=== PATIENT | female | born 1985 | race Caucasian/White ===

== ENCOUNTER 2017-04-03 11:30 | Emergency (ER) | payer SELFPAY ==
[2017-04-03 11:56] VITALS: BP 155/87; BMI 51.9
[2017-04-03] MEDS ORDERED: ZOFRAN INJ 4 MG VIAL IM ONE (12:52)
--- NOTE | 2017-04-03 12:58 | DR.NAUSEAF ---
HPI - Primary Care Physician Primary Care Physician: ARACELI RABAGO - Complaints Chief Complaint:: PT C/O HAVING NUMBNESS TO HER FEET TO HER HEAD , AND FEELING LIKE A RIVER IS RUNNING IN HER HEAD". Self Treatment fo Chief Complaint: PT IS IN A WHEELCHAIR .. AT THIS TIME .. - Reviewed Nurses Notes Reviewed: Yes - Source History Provided: Patient - Mode of Arrival Mode of Arrival: Ambulatory - Timing Onset of Chief Complaint: 03/25/17 - Context Onset: Spontaneous Recent: None : No History of: None - Quality Quality: Bilious - Associated Signs and Symptoms Abdominal Pain Quality: Other (NONE) Symptoms: Anorexia PMH - PMH Past Medical History: Yes Past Medical History: Anxiety Past Medical History Comment: PCOS, ANEMIA AND BLOOD TRANFUSION. Past Surgical History: No - Family History History of Family Medical Conditions: No - Social History Does patient currently use any type of tobacco product: No Have you used tobacco products in the last 12 months: No Type of Tobacco Use: None Does any household member use tobacco: No Alcohol Use: None Do you use any recreational Drugs:: No Lives With: Family Lives Where: Home - infectious screening In the last 2 months have you had wt loss of >10#?: NO Have you had fever, night sweats or hemotysis?: No Have you traveled outside the country in the last 6 months?: No Isolation: Standard PE - Vital Signs Vitals: Temperature 98.7 F Pulse Rate 101 Respiratory Rate 18 Blood Pressure 155/87 O2 Sat by Pulse Oximetry 97 ROR - Labs Reviewed Result Diagrams: 04/03/17 13:16 04/03/17 13:16 Laboratory: WBC 18.4 X10^3/uL (3.6-10.0) H 04/03/17 13:16 RBC 5.39 X10^6/uL (3.5-5.4) 04/03/17 13:16 Hgb 13.9 g/dL (12.0-16.0) 04/03/17 13:16 Hct 42.0 % (36.0-47.0) 04/03/17 13:16 MCV 78.0 fL (80.0-100.0) L 04/03/17 13:16 MCH 25.8 pg (27.0-34.0) L 04/03/17 13:16 MCHC 33.1 g/dL (33.0-35.0) 04/03/17 13:16 RDW 16.4 % (11.6-16.5) 04/03/17 13:16 Plt Count 356 X10^3/uL (150.0-450.0) 04/03/17 13:16 Plt Count Comment Adequate (ADEQUATE) 04/03/17 13:16 MPV 7.8 fL (7.4-11.0) 04/03/17 13:16 Neut % 79.7 % (42.0-75.0) H 04/03/17 13:16 Lymph % 15.2 % (21.0-51.0) L 04/03/17 13:16 Hanson % 4.2 % (0.0-13.0) 04/03/17 13:16 Eos % 0.3 % (0.9-2.9) L 04/03/17 13:16 Baso % 0.6 % (0.2-1.0) 04/03/17 13:16 Neut # 14.7 x10^3/uL (2.2-4.8) H 04/03/17 13:16 Lymph # 2.8 X10^3/uL (1.3-2.9) 04/03/17 13:16 Hanson # 0.8 x10^3/uL (0.3-0.8) 04/03/17 13:16 Eos # 0.1 x10^3/uL (0.0-0.2) 04/03/17 13:16 Baso # 0.1 X10^3/uL (0.0-0.1) 04/03/17 13:16 Absolute Nucleated RBC 0.0 /100WBC 04/03/17 13:16 Plt Morphology Comment Normal (NORMAL) 04/03/17 13:16 RBC Morphology Normal (NORMAL) 04/03/17 13:16 Sodium 140 mmol/L (136-145) 04/03/17 13:16 Corrected Sodium TNP 04/03/17 13:16 Potassium 4.1 mmol/L (3.5-5.1) 04/03/17 13:16 Chloride 104 mmol/L (98-107) 04/03/17 13:16 Carbon Dioxide 23.3 mmol/L (21-32) 04/03/17 13:16 BUN 16 mg/dL (7-18) 04/03/17 13:16 Creatinine 0.83 mg/dL (0.55-1.02) 04/03/17 13:16 Est GFR (MDRD) Af Amer > 60 (>60) 04/03/17 13:16 Est GFR (MDRD) Non-Af > 60 (>60) 04/03/17 13:16 Glucose 104 mg/dL (65-99) H 04/03/17 13:16 Calcium 9.3 mg/dL (8.5-10.1) 04/03/17 13:16 Corrected Calcium TNP 04/03/17 13:16 Total Bilirubin 0.20 mg/dL (0.2-1.0) 04/03/17 13:16 AST 13 Units/L (15-37) L 04/03/17 13:16 ALT 21 Units/L (12-78) 04/03/17 13:16 Alkaline Phosphatase 105 Units/L (46-116) 04/03/17 13:16 Total Protein 8.2 g/dL (6.4-8.2) 04/03/17 13:16 Albumin 3.6 g/dL (3.4-5.0) 04/03/17 13:16 Globulin 4.6 g/dL (2.5-4.5) H 04/03/17 13:16 Albumin/Globulin Ratio 0.8 Ratio (1.1-2.1) L 04/03/17 13:16 Specimen Type Clean catch urine 04/03/17 14:30 Urine Color Yellow (YELLOW) 04/03/17 14:30 Urine Appearance Cloudy (CLEAR) 04/03/17 14:30 Urine pH 5.0 (5.0 - 8.0) 04/03/17 14:30 Ur Specific P[place]ling 1.025 (1.000-1.030) 04/03/17 14:30 Urine Protein 2+ (NEGATIVE) 04/03/17 14:30 Urine Glucose (UA) Negative (NEGATIVE) 04/03/17 14:30 Urine Ketones Negative (NEGATIVE) 04/03/17 14:30 Urine Occult Blood 1+ (NEGATIVE) 04/03/17 14:30 Urine Nitrite Negative (NEGATIVE) 04/03/17 14:30 Urine Bilirubin Negative (NEGATIVE) 04/03/17 14:30 Urine Urobilinogen Normal (NORMAL) 04/03/17 14:30 Ur Leukocyte Esterase 1+ (NEGATIVE) 04/03/17 14:30 Urine RBC 0-4 /HPF (NEGATIVE) 04/03/17 14:30 Urine WBC 0-5 /HPF (NEGATIVE) 04/03/17 14:30 Ur Squamous Epith Cells Rare /HPF (NEGATIVE) 04/03/17 14:30 Amorphous Sediment 3+ /HPF (NEGATIVE) 04/03/17 14:30 Urine Bacteria Negative /HPF (NEGATIVE) 04/03/17 14:30 Ur Culture Indicated? No/not indicated 04/03/17 14:30 - Discharge Plan Disposition: HOME, SELF-CARE Condition: Stable Prescriptions: Ondansetron [Zofran ODT 8 mg] 8 mg PO Q8H PRN #12 tab PRN Reason: Nausea/Vomiting - Follow ups/Referrals Follow ups/Referrals: N[facility],None [Primary Care Provider] - 04/04/17 - Instructions Instructions: Leukocytosis, Nausea and Vomiting, Adult, [id number], Musculoskeletal Pain Additional Instructions: RETURN TO ED IF WORSE. CONTINUE MEDS AT HOME.
[2017-04-03] MEDS ORDERED: ZOFRAN INJ 4 MG VIAL ONE (13:07)
[2017-04-03 13:24] LABS: BASOPHILS # (AUTO) 0.1 X10^3/uL (0.0-0.1); BASOPHILS % (AUTO) 0.6 % (0.2-1.0); EOSINOPHILS # (AUTO) 0.1 x10^3/uL (0.0-0.2); EOSINOPHILS % (AUTO) 0.3 % (0.9-2.9); HEMOGLOBIN 13.9 g/dL (12.0-16.0); LYMPHOCYTES # (AUTO) 2.8 X10^3/uL (1.3-2.9); LYMPHOCYTES % (AUTO) 15.2 % (21.0-51.0); MEAN CORPUSCULAR HEMOGLOBIN 25.8 pg (27.0-34.0); MEAN CORPUSCULAR HGB CONC 33.1 g/dL (33.0-35.0); MEAN PLATELET VOLUME 7.8 fL (7.4-11.0); MONOCYTES # (AUTO) 0.8 x10^3/uL (0.3-0.8); MONOCYTES % (AUTO) 4.2 % (0.0-13.0); NEUTROPHILS # (AUTO) 14.7 x10^3/uL (2.2-4.8); NEUTROPHILS % (AUTO) 79.7 % (42.0-75.0); PLATELET COUNT 356 X10^3/uL (150.0-450.0); RED BLOOD COUNT 5.39 X10^6/uL (3.5-5.4); RED CELL DISTRIBUTION WIDTH 16.4 % (11.6-16.5); WHITE BLOOD COUNT 18.4 X10^3/uL (3.6-10.0)
[2017-04-03 13:36] LABS: ALANINE AMINOTRANSFERASE 21 Units/L (12-78); ALBUMIN 3.6 g/dL (3.4-5.0); ALKALINE PHOSPHATASE 105 Units/L (46-116); ASPARTATE AMINO TRANSFERASE 13 Units/L (15-37); BLOOD UREA NITROGEN 16 mg/dL (7-18); CALCIUM 9.3 mg/dL (8.5-10.1); CARBON DIOXIDE 23.3 mmol/L (21-32); CHLORIDE 104 mmol/L (98-107); CREATININE 0.83 mg/dL (0.55-1.02); SODIUM 140 mmol/L (136-145); TOTAL PROTEIN 8.2 g/dL (6.4-8.2); eGFR BLACK RACES > 60 (>60); eGFR NON BLACK RACES > 60 (>60)
[2017-04-03 13:39] LABS: PLATELET MORPHOLOGY COMMENT NORMAL (NORMAL)
--- NOTE | 2017-04-03 13:54 | CT ---
HISTORY: Right-sided weakness Study: CT of the head Comparison: None Technique: Serial axial images were obtained from the skull base to the vertex without infusion of IV contrast. Findings: The ventricles, sulci, and cisterns are grossly unremarkable in appearance. No definite evidence of a cute intracranial hemorrhage is appreciated. No significant midline shift is identified. The visualiz ed paranasal sinuses are unremarkable in appearance. If symptoms or clinical concern persist recommen d continued follow-up further evaluation. IMPRESSION: No CT evidence of acute intracranial abnormality is appreciated. Reported By:
--- NOTE | 2017-04-03 14:56 | RAD ---
Examination: Abdomen with PA chest History: Abdominal pain and vomiting Findings: PA chest demonstrates normal heart size with clear lungs and pleural spaces. In the abdomen , supine and erect views demonstrate normal gas pattern. There is nothing to suggest bowel obstructio n, perforation, ileus or mass formation. No pathologic calcification is identified. Impression: No significant chest or abdominal abnormality. Reported By:
[2017-04-03 15:07] LABS: BILIRUBIN,URINE NEGATIVE (NEGATIVE); BLOOD/HEMOGLOBIN,URINE 1+ (NEGATIVE); GLUCOSE, URINE NEGATIVE (NEGATIVE); KETONES,URINE NEGATIVE (NEGATIVE); LEUKOCYTE ESTERASE ,URINE 1+ (NEGATIVE); NITRITES,URINE NEGATIVE (NEGATIVE); PROTEIN,URINE 2+ (NEGATIVE); UROBILINOGEN,URINE NORMAL (NORMAL)
[2017-04-03 15:09] LABS: APPEARANCE,URINE CLOUDY (CLEAR); COLOR,URINE YELLOW (YELLOW); RBC,URINE 0-4 /HPF (NEGATIVE)
[2017-04-03 15:10] LABS: AMORPHOUS SEDIMENT,UR 3+ /HPF (NEGATIVE); BACTERIA,URINE NEGATIVE /HPF (NEGATIVE); SQUAMOUS EPITHELIAL CELL,UR RARE /HPF (NEGATIVE)
== END 2017-04-03 16:11 | disposition home or self-care (01) ==
LOC: ER 12:12
DX: D72.829 Elevated white blood cell count, unspecified (principal); R11.2 Nausea with vomiting, unspecified; M79.1 Myalgia; R20.0 Anesthesia of skin
CPT/HCPCS: 36415; 70450; 74022; 80053; 81001; 85025; 96372; 99282; 99283; J2405